=== PATIENT | female | born 1955 | race Two or more races ===

== ENCOUNTER → 2020-09-11 | Outpatient (CLI) | payer OTHER ==
[2020-09-11 08:42] LABS: Basophils # (auto) 0.1 10 ^3/uL (0-0.2); Basophils % (auto) 0.9 % (0.0-2.0); Eosinophils # (auto) 0.3 10 ^3/uL (0-0.8); Eosinophils % (auto) 5.1 % (0.0-7.0); Hematocrit 39.9 % (36.0-46.0); Hemoglobin 13.2 g/dL (12.2-16.2); Lymphocytes # (auto) 1.8 10 ^3/uL (0.4-5.4); Lymphocytes % (auto) 31.4 % (10.0-50.0); Mean Corpuscular Hemoglobin 31.1 pg (28.0-32.0); Mean Corpuscular Volume 94.3 fL (80.0-100.0); Monocytes # (auto) 0.4 10 ^3/uL (0-1.3); Monocytes % (auto) 6.7 % (0.0-12.0); Neutrophils # (auto) 3.3 10 ^3/uL (1.6-8.6); Neutrophils % (auto) 55.9 % (37.0-80.0); Nucleated Red Blood Cells % 0.1 %; Platelet Count (auto) 223 10^3/uL (140-450); Red Blood Cells 4.23 10^6/uL (4.0-5.20); Red Cell Distribution Width 13.1 % (11.8-14.3); White Blood Cell 5.9 10^3/uL (4.4-10.8)
[2020-09-11 08:47] LABS: Urine Bacteria NONE SEEN /hpf (None Seen); Urine Blood Negative /uL (Negative); Urine Mucus FEW (None Seen); Urine Specific Gravity 1.026 (1.001-1.035); Urine WBC 8 /hpf (0 - 5)
[2020-09-11 09:21] LABS: Albumin 3.5 g/dL (3.4-5.0); BUN/Creatinine Ratio 16.4; Bilirubin, Total 0.4 mg/dL (0.2-1.0); Calcium 9.2 mg/dL (8.5-10.1); Potassium 3.8 mmol/L (3.5-5.1); Total Protein 8.2 g/dL (6.4-8.2)
== END | disposition home or self-care (01) ==
LOC: LAB 08:21
PROVIDERS: ATTEND Student in an Organized Health Care Education/Training Program
DX: I10 Essential (primary) hypertension (principal); R73.9 Hyperglycemia, unspecified
CPT/HCPCS: 36415; 80053; 80061; 81001; 83036; 84443; 85025

== ENCOUNTER 2021-10-20 06:02 | Emergency (ER) | payer MEDICARE ==
[~2021-10-20] VITALS: Ht 157.5 cm; Wt 66.7 kg
[2021-10-20 07:56] VITALS: BP 154/85
[2021-10-20] MEDS ORDERED: PRED20TA2 PO (09:19)
[2021-10-20] MEDS ORDERED: LEVO500T31 PO (09:19)
== END 2021-10-20 09:33 | disposition home or self-care (01) ==
LOC: ER 06:02
DX: J01.90 Acute sinusitis, unspecified (principal); I10 Essential (primary) hypertension; Z20.822 Contact with and (suspected) exposure to COVID-19
CPT/HCPCS: 36415; 87426

== ENCOUNTER → 2022-04-08 | Outpatient (CLI) | payer MEDICARE, MEDICAID ==
[~2022-04-08] MED LIST: LEVO500T31 PO; PRED20TA2 PO
[2022-04-08 07:46] LABS: Basophils # (auto) 0.1 10 ^3/uL (0-0.2); Basophils % (auto) 1.2 % (0.0-2.0); Eosinophils # (auto) 0.2 10 ^3/uL (0-0.8); Hematocrit 38.5 % (36.0-46.0); Lymphocytes # (auto) 3.4 10 ^3/uL (0.4-5.4); Lymphocytes % (auto) 39.5 % (10.0-50.0); Mean Corpuscular Hemoglobin 31.7 pg (28.0-32.0); Mean Corpuscular Hgb Conc. 33.9 g/dL (32.0-36.0); Mean Corpuscular Volume 93.5 fL (80.0-100.0); Monocytes # (auto) 0.6 10 ^3/uL (0-1.3); Monocytes % (auto) 7.2 % (0.0-12.0); Neutrophils # (auto) 4.3 10 ^3/uL (1.6-8.6); Neutrophils % (auto) 50.1 % (37.0-80.0); Nucleated Red Blood Cells % 0.2 %; Red Blood Cells 4.12 10^6/uL (4.0-5.20); Red Cell Distribution Width 12.9 % (11.8-14.3); White Blood Cell 8.7 10^3/uL (4.4-10.8)
[2022-04-08 07:59] LABS: Urine Bacteria FEW /hpf (None Seen); Urine Blood Negative /uL (Negative); Urine WBC 1 /hpf (0 - 5)
[2022-04-08 08:29] LABS: Potassium 3.8 mmol/L (3.5-5.1)
[2022-04-08 08:37] LABS: Calcium 8.3 mg/dL (8.5-10.1)
== END | disposition home or self-care (01) ==
LOC: LAB 07:31
PROVIDERS: ATTEND Student in an Organized Health Care Education/Training Program
DX: R73.9 Hyperglycemia, unspecified (principal); I10 Essential (primary) hypertension
CPT/HCPCS: 36415; 80048; 80061; 81001; 83036; 85025

== ENCOUNTER → 2022-11-19 | Outpatient (CLI) | payer MEDICARE, MEDICAID ==
[2022-11-19 08:48] LABS: Basophils # (auto) 0.1 10 ^3/uL (0-0.2); Basophils % (auto) 0.9 % (0.0-2.0); Eosinophils # (auto) 0.2 10 ^3/uL (0-0.8); Eosinophils % (auto) 4.3 % (0.0-7.0); Hematocrit 40.4 % (36.0-46.0); Hemoglobin 13.5 g/dL (12.2-16.2); Lymphocytes # (auto) 1.9 10 ^3/uL (0.4-5.4); Lymphocytes % (auto) 35.2 % (10.0-50.0); Mean Corpuscular Hemoglobin 31.3 pg (28.0-32.0); Mean Corpuscular Hgb Conc. 33.4 g/dL (32.0-36.0); Mean Corpuscular Volume 93.7 fL (80.0-100.0); Monocytes # (auto) 0.3 10 ^3/uL (0-1.3); Monocytes % (auto) 5.6 % (0.0-12.0); Nucleated Red Blood Cells % 0.1 %; Red Blood Cells 4.31 10^6/uL (4.0-5.20); Red Cell Distribution Width 12.9 % (11.8-14.3); White Blood Cell 5.5 10^3/uL (4.4-10.8)
[2022-11-19 08:58] LABS: Urine Bacteria NONE SEEN /hpf (None Seen); Urine Blood Negative /uL (Negative); Urine Specific Gravity 1.017 (1.001-1.035); Urine WBC <1 /hpf (0 - 5)
[2022-11-19 09:25] LABS: Albumin 3.8 g/dL (3.4-5.0); Calcium 8.9 mg/dL (8.5-10.1)
[2022-11-19 09:32] LABS: BUN/Creatinine Ratio 16.1; Bilirubin, Total 0.5 mg/dL (0.2-1.0); Total Protein 8.4 g/dL (6.4-8.2)
== END | disposition home or self-care (01) ==
LOC: LAB 08:25
PROVIDERS: ATTEND Student in an Organized Health Care Education/Training Program
DX: I10 Essential (primary) hypertension (principal); R73.9 Hyperglycemia, unspecified; E55.9 Vitamin D deficiency, unspecified
CPT/HCPCS: 36415; 80053; 80061; 81001; 82306; 83036; 84443; 85025

== ENCOUNTER 2022-12-25 00:37 | Emergency (ER) | payer MEDICARE, OTHER ==
[~2022-12-25] VITALS: Ht 157.5 cm; Wt 66.6 kg
[2022-12-25] MEDS ORDERED: ONDANSETRON ODT 4 MG TAB PO ONE (02:15)
[2022-12-25 02:27] LABS: Basophils # (auto) 0.1 10 ^3/uL (0-0.2); Basophils % (auto) 0.6 % (0.0-2.0); Eosinophils # (auto) 0.2 10 ^3/uL (0-0.8); Eosinophils % (auto) 1.6 % (0.0-7.0); Hematocrit 41.1 % (36.0-46.0); Hemoglobin 13.8 g/dL (12.2-16.2); Lymphocytes # (auto) 1.5 10 ^3/uL (0.4-5.4); Lymphocytes % (auto) 11.9 % (10.0-50.0); Mean Corpuscular Hemoglobin 31.4 pg (28.0-32.0); Mean Corpuscular Hgb Conc. 33.7 g/dL (32.0-36.0); Mean Corpuscular Volume 93.3 fL (80.0-100.0); Monocytes # (auto) 0.8 10 ^3/uL (0-1.3); Monocytes % (auto) 6.1 % (0.0-12.0); Neutrophils % (auto) 79.8 % (37.0-80.0); Nucleated Red Blood Cells % 0.1 %; Red Cell Distribution Width 13.1 % (11.8-14.3); White Blood Cell 12.5 10^3/uL (4.4-10.8)
[2022-12-25 02:44] LABS: Albumin 3.9 g/dL (3.4-5.0); BUN/Creatinine Ratio 21.9; Calcium 9.1 mg/dL (8.5-10.1); Potassium 3.7 mmol/L (3.5-5.1)
[2022-12-25 02:46] LABS: Bilirubin, Total 0.5 mg/dL (0.2-1.0); Total Protein 8.7 g/dL (6.4-8.2)
[2022-12-25] MEDS ORDERED: METR500T PO (05:40)
[2022-12-25] MEDS ORDERED: CIPR-173 PO (05:40)
[2022-12-25] MEDS ORDERED: ONDA-144 PO (05:40)
[2022-12-25] MEDS ORDERED: PERCOT PO (05:40)
[2022-12-25 06:55] VITALS: BP 150/79
== END 2022-12-25 06:54 | disposition home or self-care (01) ==
LOC: ER 00:37
DX: K52.9 Noninfective gastroenteritis and colitis, unspecified (principal); I10 Essential (primary) hypertension; Z79.2 Long term (current) use of antibiotics; Z79.899 Other long term (current) drug therapy
CPT/HCPCS: 36415; 74176; 80053; 85025; 99284; Q0162

== ENCOUNTER 2023-01-21 17:11 | Emergency (ER) | payer MEDICARE, OTHER ==
[~2023-01-21] VITALS: Ht 162.6 cm; Wt 67.9 kg
[~2023-01-21 17:11] MED LIST changes: +CIPR-173 PO; +METR500T PO; +ONDA-144 PO; +PERCOT PO
[2023-01-21] MEDS ORDERED: NAP500T PO (19:27)
[2023-01-21] MEDS ORDERED: KETOROLAC TROMETH 60MG/2ML VIAL IM ONE (19:30)
[2023-01-21] MEDS ORDERED: methylPREDNISolone SOD SUCC 125 MG/2 ML VL IM ONE (19:30)
[2023-01-21 21:39] VITALS: BP 138/79
== END 2023-01-21 21:39 | disposition home or self-care (01) ==
LOC: ER 17:11
DX: S16.1XXA Strain of muscle, fascia and tendon at neck level, initial encounter (principal); I10 Essential (primary) hypertension; Z79.2 Long term (current) use of antibiotics; Z79.899 Other long term (current) drug therapy; X58.XXXA Exposure to other specified factors, initial encounter; Y93.89 Activity, other specified; Y92.89 Other specified places as the place of occurrence of the external cause; Y99.8 Other external cause status
CPT/HCPCS: 72040; 96372; 99283; J1885

== ENCOUNTER → 2023-04-29 | Outpatient (CLI) | payer MEDICARE, OTHER ==
[~2023-04-29] MED LIST changes: +NAP500T PO
[2023-04-29 07:59] LABS: Basophils # (auto) 0.1 10 ^3/uL (0-0.2); Basophils % (auto) 1.1 % (0.0-2.0); Eosinophils # (auto) 0.2 10 ^3/uL (0-0.8); Eosinophils % (auto) 4.1 % (0.0-7.0); Hematocrit 38.7 % (36.0-46.0); Hemoglobin 12.8 g/dL (12.2-16.2); Lymphocytes # (auto) 1.8 10 ^3/uL (0.4-5.4); Lymphocytes % (auto) 32.7 % (10.0-50.0); Mean Corpuscular Hemoglobin 30.9 pg (28.0-32.0); Mean Corpuscular Hgb Conc. 33.1 g/dL (32.0-36.0); Mean Corpuscular Volume 93.5 fL (80.0-100.0); Monocytes # (auto) 0.4 10 ^3/uL (0-1.3); Monocytes % (auto) 6.7 % (0.0-12.0); Neutrophils % (auto) 55.4 % (37.0-80.0); Nucleated Red Blood Cells % 0.1 %; Red Blood Cells 4.14 10^6/uL (4.0-5.20); Red Cell Distribution Width 13.4 % (11.8-14.3); White Blood Cell 5.4 10^3/uL (4.4-10.8)
[2023-04-29 08:26] LABS: Urine Bacteria FEW /hpf (None Seen); Urine Blood Negative /uL (Negative); Urine Mucus FEW (None Seen); Urine Specific Gravity 1.025 (1.001-1.035); Urine WBC 4 /hpf (0 - 5)
[2023-04-29 08:55] LABS: Albumin 3.5 g/dL (3.4-5.0); BUN/Creatinine Ratio 15.7 (10.0-20.0); Bilirubin, Total 0.4 mg/dL (0.2-1.0); Calcium 9.1 mg/dL (8.5-10.1); Total Protein 8.4 g/dL (6.4-8.2)
== END | disposition home or self-care (01) ==
LOC: LAB 07:24
PROVIDERS: ATTEND Student in an Organized Health Care Education/Training Program
DX: N39.0 Urinary tract infection, site not specified (principal)
CPT/HCPCS: 36415; 80053; 81001; 85025; 87086

== ENCOUNTER → 2023-06-09 | Outpatient (CLI) | payer MEDICARE, OTHER ==
[2023-06-09 08:18] LABS: Basophils # (auto) 0.1 10 ^3/uL (0-0.2); Basophils % (auto) 0.9 % (0.0-2.0); Eosinophils # (auto) 0.3 10 ^3/uL (0-0.8); Eosinophils % (auto) 4.2 % (0.0-7.0); Hematocrit 37.9 % (36.0-46.0); Hemoglobin 12.9 g/dL (12.2-16.2); Lymphocytes # (auto) 2.1 10 ^3/uL (0.4-5.4); Lymphocytes % (auto) 33.5 % (10.0-50.0); Mean Corpuscular Hgb Conc. 34.1 g/dL (32.0-36.0); Mean Corpuscular Volume 93.9 fL (80.0-100.0); Monocytes # (auto) 0.4 10 ^3/uL (0-1.3); Monocytes % (auto) 6.6 % (0.0-12.0); Neutrophils # (auto) 3.5 10 ^3/uL (1.6-8.6); Neutrophils % (auto) 54.8 % (37.0-80.0); Nucleated Red Blood Cells % 0.2 %; Red Blood Cells 4.04 10^6/uL (4.0-5.20); Red Cell Distribution Width 12.7 % (11.8-14.3); White Blood Cell 6.4 10^3/uL (4.4-10.8)
[2023-06-09 08:22] LABS: Urine Bacteria FEW /hpf (None Seen); Urine Blood Negative /uL (Negative); Urine Clarity Clear (Clear); Urine Color Yellow (Yellow); Urine Mucus FEW (None Seen); Urine Protein, UAD Negative (Negative); Urine Urobilinogen Normal (Negative); Urine WBC 2 /hpf (0 - 5)
[2023-06-09 08:42] LABS: Albumin 3.5 g/dL (3.4-5.0); Calcium 8.7 mg/dL (8.5-10.1); Potassium 3.8 mmol/L (3.5-5.1)
[2023-06-09 08:47] LABS: BUN/Creatinine Ratio 16.7 (10.0-20.0); Bilirubin, Total 0.5 mg/dL (0.2-1.0); Total Protein 8.1 g/dL (6.4-8.2)
== END | disposition home or self-care (01) ==
LOC: LAB 07:53
DX: I10 Essential (primary) hypertension (principal); R73.03 Prediabetes
CPT/HCPCS: 36415; 80053; 80061; 81001; 83036; 85025

== ENCOUNTER 2025-01-29 17:31 | Inpatient (IN) | payer OTHER, MEDICAID ==
[~2025-01-29] VITALS: Ht 157.5 cm; Wt 57.6 kg
--- NOTE | 2025-01-29 17:44 | ED.PDOC ---
HPI Comments 69 year old female presents to the ED via EMS with a chief complaint of chest pain onset today (01/29/25). Per EMS, patient was experiencing chest pain, EKG showed she was in SVT, was given Adenosine 6 mg IV, converted to NSR. Upon ED arrival, patient states chest pain has resolved. She denies any past cardiac history, states she began experiencing cardiac issues after having COVID 2 weeks ago. Has an appointment with [facility] on 02/08/25. PMHx HTN. Denies shortness of breath, dizziness, headache, blurry vision, nausea, vomiting, diarrhea, abdominal pain, dysuria, hematuria, fever, chills. No other symptoms or modifying factors present at this time. Patient continued to be mildly tachycardic at arrival. Chief Complaint: Chest Pain Time Seen by MD: 17:35 Primary Care Provider: FAYE Reviewed Notes: Nurses Notes, Sheet [employer] Du[employer] Worker Supervisor Notes, Medications, Allergies Allergies: Coded Allergies: NO KNOWN ALLERGIES (Unverified , 12/25/22) Home Meds Active Scripts Naproxen (NAPROSYN TABLET) 500 Mg Tb, 1 TAB PO BID PRN, #30 TAB 0 Refills Prov:CARLOS KAN 01/21/23 Ondansetron (Zofran) 4 Mg Tab, 4 MG PO BID for 7 Days, #14 MG Prov:LUKE CASTORENA MD 12/25/22 Oxycodone W/ Acetaminophen (Percocet 5/325MG) 1 Tab Tb, 1 TAB PO BID for 7 Days, #14 TAB Prov:LUKE CASTORENA MD 12/25/22 Ciprofloxacin Hcl (Cipro) 500 Mg Tab, 500 MG PO BID for 7 Days, #14 TAB Prov:LUKE CASTORENA MD 12/25/22 Metronidazole (Flagyl) 500 Mg Tab, 500 MG PO BID for 7 Days, #14 TAB Prov:LUKE CASTORENA MD 12/25/22 Metronidazole (Flagyl) 500 Mg Tab, 500 MG PO BID for 7 Days, #14 TAB Prov:LUKE CASTORENA MD 12/25/22 Prednisone (Prednisone) 20 Mg Tab, 60 MG PO DAILY for 5 Days, #15 MG Prov:ORLIN GARY 10/20/21 Levofloxacin (Levaquin) 500 Mg Tab, 500 MG PO DAILY for 10 Days, #10 TAB Prov:ORLIN GARY 10/20/21 Information Source: Patient, Emergency Med Personnel Mode of Arrival: EMS Severity: Moderate Timing: Hours Duration: Since onset Prehospital treatment: 12 Lead EKG, Other (Asenosine 6mg IV) Location: Chest (L) Radiation: No Radiation Quality: Sharp Onset: At Rest Cardiac Risk Factors: HTN PE Risk Factors: None History of: None Modifying Factors: Nothing Past Medical History PAST MEDICAL HISTORY: Cancer, HTN Surgical History: Denies all surgeries 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 Family History Family History: Unknown Social History Smoker: Non-Smoker Alcohol: Denies ETOH Use Drugs: Denies Drug Use Lives In: Home Constitutional: denies: chills, diaphoresis, fatigue, fever, malaise, sweats, weakness, others EENTM: denies: blurred vision, double vision, ear bleeding, ear discharge, ear drainage, ear pain, ear ringing, eye pain, eye redness, hearing loss, mouth pain, mouth swelling, nasal discharge, nose bleeding, nose congestion, nose pain, photophobia, tearing, throat pain, throat swelling, voice changes, others Respiratory: denies: cough, hemoptysis, orthopnea, SOB at rest, shortness of breath, SOB with excertion, stridor, wheezing, others Cardiovascular: reports: chest pain, palpitations; denies: dizzy spells, diaphoresis, Dyspnea on exertion, edema, irregular heart beat, left arm pain, lightheadedness, PND, syncope, others Gastrointestinal: denies: abdomen distended, abdominal pain, blood streaked bowels, constipated, diarrhea, dysphagia, difficulty swallowing, hematemesis, melena, nausea, poor appetite, poor fluid intake, rectal bleeding, rectal pain, vomiting, others Genitourinary: denies: abnormal vagina bleeding, burning, dyspareunia, dysuria, flank pain, frequency, hematuria, incontinence, pain, , vagina discharge, urgency, others Neurological: denies: dizziness, fainting, headache, left sided numbness, left sided weakness, numbness, paresthesia, pre-existing deficit, right sided numbness, right sided weakness, seizure, speech problems, tingling, tremors, weakness, others Musculoskeletal: denies: back pain, gout, joint pain, joint swelling, muscle pain, muscle stiffness, neck pain, others Integumetry: denies: bruises, change in color, change in hair/nails, dryness, laceration, lesions, lumps, rash, wounds, others Allergic/Immunocompromised: denies: Difficulty Healing, Frequent Infections, Hives, Itching, others Hematologic/Lymphatic: denies: anemia, blood clots, easy bleeding, easy bruising, swollen glands, others Endocrine: denies: excessive hunger, excessive sweating, excessive thirst, excessive urination, flushing, intolerance to cold, intolerance to heat, unexplained weight gain, unexplained weight loss, others Psychiatric: denies: anxiety, bipolar disorder, depression, hopeless, panic disorder, schizophrenia, sleepless, suicidal, others All Other Systems: Reviewed and Negative Physical Exam General Appearance: Mild Distress (Patient was in mild discomfort at time of evaluation due to chest pain anxiety concerns.), Normal HEENT: Normal ENT Inspection, Pharynx Normal, TMs Normal Neck: Full Range of Motion, Non-Tender, Normal, Normal Inspection Respiratory: Chest Non-Tender, Lungs Clear, No Accessory Muscle Use, No Respiratory Distress, Normal Breath Sounds Cardiovascular: No Edema, No JVD, No Murmur, No Gallop, Normal Peripheral Pulses, Tachycardia Breast Exam: Deferred Gastrointestinal: No Organomegaly, Non Tender, No Pulsatile Mass, Normal Bowel Sounds, Soft Genitalia: Deferred Pelvic: Deferred Rectal: Deferred Extremities: No calf tenderness, Normal capillary refill, Normal inspection, Normal range of motion, Non-tender, No pedal edema Musculoskeletal : Apperance: Normal Neurologic: Alert, No Motor Deficits, Normal Affect, Normal Mood, No Sensory Deficits Cerebellar Function: Normal Reflexes: Normal Skin: Dry, Normal Color, Warm Lymphatic: No Adenopathy Was a procedure done? Was a procedure done?: No CP Differential Dx Differential Diagnosis: A-fib, A-Flutter, Anxiety / Panic Attack, Atrial Dysrhythmia, AV Block 1st Degree, CT, V-Tach Differential Diagnosis: Angina X-Ray, Labs, Meds, VS Vital Signs Date Time Temp Pulse Resp B/P (MAP) Pulse Ox O2 Delivery O2 Flow Rate FiO2 01/29/25 18:10 98.5 107 18 117/67 (84) 95 98.5 01/29/25 18:10 107 18 95 Room Air* 0 21 01/29/25 17:40 112 01/29/25 17:33 110 18 134/59 (84) 100 Lab Test 01/29/25 21:01 01/29/25 18:59 01/29/25 18:14 01/29/25 18:05 Range/Units Troponin I High Sensitivity 10 6 3 L </=34 ng/L Urine Color Colorless Yellow Urine Clarity Clear Clear Urine pH 6.5 5.0-9.0 Urine Specific [place] 1.005 1.001-1.035 Urine Protein Negative Negative Urine Ketones Negative Negative Urine Blood Negative Negative /uL Urine Nitrite Negative Negative Urine Bilirubin Negative Negative Urine Urobilinogen Normal Negative mg/dL Urine Leukocyte Esterase Negative Negative /uL Urine RBC 1 0 - 4 /hpf Urine Microscopic WBC 1 0-5 /HPF Urine Squamous Epithelial Cells Few <5 /hpf Urine Bacteria Mod H None Seen /hpf Urine Mucus Few None Seen Urine Glucose Normal Normal mg/dL White Blood Count 7.5 4.4-10.8 10^3/uL Red Blood Count 4.27 4.0-5.20 10^6/uL Hemoglobin 13.5 12.2-16.2 g/dL Hematocrit 41.4 36.0-46.0 % Mean Corpuscular Volume 97.1 80.0-100.0 fL Mean Corpuscular Hemoglobin 31.6 28.0-32.0 pg Mean Corpuscular Hemoglobin Concent 32.6 32.0-36.0 g/dL Red Cell Distribution Width 12.9 11.8-14.3 % Platelet Count 235 140-450 10^3/uL Mean Platelet Volume 7.5 6.9-10.8 fL Neutrophils (%) (Auto) 82.1 H 37.0-80.0 % Lymphocytes (%) (Auto) 11.9 10.0-50.0 % Monocytes (%) (Auto) 4.7 0.0-12.0 % Eosinophils (%) (Auto) 0.9 0.0-7.0 % Basophils (%) (Auto) 0.4 0.0-2.0 % Neutrophils # (Auto) 6.1 1.6-8.6 10 ^3/uL Lymphocytes # (Auto) 0.9 0.4-5.4 10 ^3/uL Monocytes # (Auto) 0.3 0-1.3 10 ^3/uL Eosinophils # (Auto) 0.1 0-0.8 10 ^3/uL Basophils # (Auto) 0 0-0.2 10 ^3/uL Nucleated Red Blood Cells 0.1 % D-Dimer, Quantitative 0.88 H 0.0-0.49 mg/L FEU Sodium Level 140 136-145 mmol/L Potassium Level 3.9 3.5-5.1 mmol/L Chloride Level 109 H 98-107 mmol/L Carbon Dioxide Level 20 20-31 mmol/L Anion Gap 11 5-15 Blood Urea Nitrogen 12 9-23 mg/dL Creatinine 0.74 0.550-1.02 mg/dL Glomerular Filtration Rate Calc 87 >90 mL/min BUN/Creatinine Ratio 16.2 10.0-20.0 Serum Glucose 147 H 74-106 mg/dL Calcium Level 9.6 8.7-10.4 mg/dL Magnesium Level 2.2 1.6-2.6 mg/dL Total Bilirubin 0.3 0.2-1.0 mg/dL Aspartate Amino Transferase (AST) 49 H 13-40 U/L Alanine Aminotransferase (ALT) 49 H 7-40 U/L Alkaline Phosphatase 100 46-116 U/L B-Type Natriuretic Peptide 43.83 0-100 pg/mL Total Protein 8.3 H 5.7-8.2 g/dL Albumin 4.5 3.2-4.8 g/dL Thyroid Stimulating Hormone (TSH) 0.89 0.55-4.78 uIU/mL X-Ray, Labs, Meds, VS Comment All studies performed the ED were evaluated by me personally. Serum laboratories were only remarkable for a mildly elevated D-dimer. Patient displayed no signs of shortness a breath and therefore, CT angio was not ordered. EKG revealed a sinus tachycardia with a rate of 112. Probable left atrial enlargement. Left anterior fascicular block with low voltage in precordial leads as well as RSR in V1 and V2. CA interval 143 and QT interval of 346. Due to the onset of the V-tach, patient will be transferred to [facility] for continued evaluation and management. Patient will be given a single dose of Lovenox for PE protection. Discussed the patient presentation as well as laboratory and EKG findings with the Dr. Rivers at [facility]. Due to the recent onset of the V-tach events, he will allow us to manage the patient at our [facility]. Authorization number [id number]. Time of 1ST Reevaluation: 22:18 Reevaluation 1ST: Improved Consultation: PCP, Cardiology Patient Education/Counseling: Diagnosis, Treatment, Prognosis Family Education/Counseling: Diagnosis, Treatment, No Family Present Departure 1 Departure Time of Disposition: 21:57 Impression: Primary Impression: Acute coronary syndrome Additional Impression: V tach Disposition: 02 SHORT TERM HOSPITAL Condition: Stable Discharged With: Self Critical Care Note Critical Care Time?: No Stability Stability form required: No Heart Score Heart Score: Heart Score Response (Comments) Value History Slightly Suspicious 0 EKG Repolarization Disturb 1 Age >65 2 Risk Factors 1 or 2 risk factors 1 Troponin Normal limit 0 Total 4 I personally scribed for TYRONE WILSON PAC ([email or web address]) on 01/29/25 at 17:44. Electronically submitted by Iveth Frank ([email or web address]). I personally scribed for TYRONE WILSON PAC ([email or web address]) on 01/29/25 at 20:23. Electronically submitted by Dick Marcelo ([email or web address]). TYRONE WILSON PAC Jan 29, 2025 17:44
[2025-01-29 18:10] VITALS: PULSE 107; RESP 18; O2SAT 95
[2025-01-29 18:38] LABS: Basophils # (auto) 0 10 ^3/uL (0-0.2); Basophils % (auto) 0.4 % (0.0-2.0); Eosinophils # (auto) 0.1 10 ^3/uL (0-0.8); Eosinophils % (auto) 0.9 % (0.0-7.0); Hematocrit 41.4 % (36.0-46.0); Hemoglobin 13.5 g/dL (12.2-16.2); Lymphocytes # (auto) 0.9 10 ^3/uL (0.4-5.4); Lymphocytes % (auto) 11.9 % (10.0-50.0); Mean Corpuscular Hemoglobin 31.6 pg (28.0-32.0); Mean Corpuscular Hgb Conc. 32.6 g/dL (32.0-36.0); Mean Corpuscular Volume 97.1 fL (80.0-100.0); Monocytes # (auto) 0.3 10 ^3/uL (0-1.3); Monocytes % (auto) 4.7 % (0.0-12.0); Neutrophils # (auto) 6.1 10 ^3/uL (1.6-8.6); Neutrophils % (auto) 82.1 % (37.0-80.0); Nucleated Red Blood Cells % 0.1 %; Platelet Count (auto) 235 10^3/uL (140-450); Red Blood Cells 4.27 10^6/uL (4.0-5.20); Red Cell Distribution Width 12.9 % (11.8-14.3); White Blood Cell 7.5 10^3/uL (4.4-10.8)
[2025-01-29 19:07] LABS: Urine Bacteria MOD /hpf (None Seen); Urine Blood Negative /uL (Negative); Urine Clarity Clear (Clear); Urine Color Colorless (Yellow); Urine Mucus FEW (None Seen); Urine Protein, UAD Negative (Negative); Urine Specific Gravity 1.005 (1.001-1.035); Urine Squamous Epithelial Cell FEW /hpf (<5); Urine Urobilinogen Normal (Negative); Urine WBC 1 /HPF (0-5); Urine pH 6.5 (5.0-9.0)
[2025-01-29 19:09] LABS: Albumin 4.5 g/dL (3.2-4.8); Alkaline Phosphatase 100 U/L (46-116); Anion Gap 11 (5-15); BUN/Creatinine Ratio 16.2 (10.0-20.0); Blood Urea Nitrogen 12 mg/dL (9-23); Calcium 9.6 mg/dL (8.7-10.4); Carbon Dioxide 20 mmol/L (20-31); Magnesium 2.2 mg/dL (1.6-2.6); Potassium 3.9 mmol/L (3.5-5.1); Sodium 140 mmol/L (136-145)
[2025-01-29 19:13] LABS: Alanine Aminotransferase 49 U/L (7-40); Aspartate Aminotransferase 49 U/L (13-40); Bilirubin, Total 0.3 mg/dL (0.2-1.0); Chloride 109 mmol/L (98-107); Glucose 147 mg/dL (74-106); Total Protein 8.3 g/dL (5.7-8.2)
[2025-01-29 23:00] VITALS: PULSE 79; RESP 22; O2SAT 97
[2025-01-30] VITALS (8 sets, daily range): BP systolic 111–132; BP diastolic 59–72; PULSE 63–84; RESP 16–18; TEMP 97.3–98.3; O2SAT 95–98
[2025-01-30] MEDS ORDERED: MORPHINE SULFATE INJ 2 MG/ml SYRG IV PRN
[2025-01-30] MEDS ORDERED: ONDANSETRON HCL 4 MG/2 ML VIAL IV PRN
[2025-01-30] MEDS ORDERED: ACETAMINOPHEN 325 MG TAB PO PRN
[2025-01-30] MEDS ORDERED: NITROGLYCERIN 0.4 MG SL TAB SL PRN
[2025-01-30] MEDS: IOHEXOL 350 MG/ML 100ML IJ ONE (00:06)
--- NOTE | 2025-01-30 00:35 | DVHHP2 ---
History of Present Illness Reason for Visit: Palpitations History of Present Illness 69-year-old female presents for evaluation of palpitations. Patient reports a one day history of palpitations. In route patient was noted to be in SVT and was given 6 mg of adenosine converted to normal sinus rhythm. Patient reports having a similar episode two weeks ago. Denies chest pain, shortness for breath, nausea or vomiting. No other acute complaints reported. Past Medical History Hypertension, cancer, SVT Past Surgical History Denies Family History Noncontributory Smoke: No ALCOHOL: none Drugs: None Lives: with Family Review of Systems Review of Systems Review of systems are currently negative otherwise addressed in HPI. Allergies: Coded Allergies: NO KNOWN ALLERGIES (Unverified , 12/25/22) Medications Current Medications Medications Dose Ordered Sig/[place] Route Start Time Stop Time Status Last Admin Dose Admin Metoprolol Succinate 50 mg DAILY PO 01/30/25 10:00 Ondansetron HCl 4 mg Q4HP PRN IV 01/30/25 00:00 Acetaminophen 650 mg Q6HP PRN PO 01/30/25 00:00 Nitroglycerin 0.4 mg Q5MINP PRN SL 01/30/25 00:00 Morphine Sulfate 2 mg Q30M PRN IV 01/30/25 00:00 Exam Vital Signs Vital Signs Date Time Temp Pulse Resp B/P (MAP) Pulse Ox O2 Delivery O2 Flow Rate FiO2 01/30/25 00:00 92 01/30/25 00:00 98.8 17 129/64 (85) 94 98.8 01/29/25 23:00 Room Air* 0 21 Exam Gen: 69-year-old female in mild distress Skin: Warm, dry, normal color and texture, no rash. HEENT: Normocephalic atraumatic, mucous membranes moist and pink. Neck: Cervical and supraclavicular nodes normal without enlargement, trachea is midline, thyroid gland is normal without masses. Pulmonary: Clear to auscultation and percussion bilaterally. Cardiac: Regular rate and rhythm. No murmur Abdomen: Soft, nontender, nondistended, bowel sounds present all 4 quadrants, no guarding, no rigidity, no organomegaly. Extremities: No cyanosis, clubbing, no edema Neuro: Cranial nerves II through XII grossly intact, normal affect and speech, no focal motor deficits. Labs/Xrays Labs Test 01/29/25 21:01 01/29/25 18:14 01/29/25 18:05 Range/Units Troponin I High Sensitivity 10 </=34 ng/L Thyroid Stimulating Hormone (TSH) 0.93 0.55-4.78 uIU/mL Urine Color Colorless Yellow Urine Clarity Clear Clear Urine pH 6.5 5.0-9.0 Urine Specific [place] 1.005 1.001-1.035 Urine Protein Negative Negative Urine Ketones Negative Negative Urine Blood Negative Negative /uL Urine Nitrite Negative Negative Urine Bilirubin Negative Negative Urine Urobilinogen Normal Negative mg/dL Urine Leukocyte Esterase Negative Negative /uL Urine RBC 1 0 - 4 /hpf Urine Microscopic WBC 1 0-5 /HPF Urine Squamous Epithelial Cells Few <5 /hpf Urine Bacteria Mod H None Seen /hpf Urine Mucus Few None Seen Urine Glucose Normal Normal mg/dL White Blood Count 7.5 4.4-10.8 10^3/uL Red Blood Count 4.27 4.0-5.20 10^6/uL Hemoglobin 13.5 12.2-16.2 g/dL Hematocrit 41.4 36.0-46.0 % Mean Corpuscular Volume 97.1 80.0-100.0 fL Mean Corpuscular Hemoglobin 31.6 28.0-32.0 pg Mean Corpuscular Hemoglobin Concent 32.6 32.0-36.0 g/dL Red Cell Distribution Width 12.9 11.8-14.3 % Platelet Count 235 140-450 10^3/uL Mean Platelet Volume 7.5 6.9-10.8 fL Neutrophils (%) (Auto) 82.1 H 37.0-80.0 % Lymphocytes (%) (Auto) 11.9 10.0-50.0 % Monocytes (%) (Auto) 4.7 0.0-12.0 % Eosinophils (%) (Auto) 0.9 0.0-7.0 % Basophils (%) (Auto) 0.4 0.0-2.0 % Neutrophils # (Auto) 6.1 1.6-8.6 10 ^3/uL Lymphocytes # (Auto) 0.9 0.4-5.4 10 ^3/uL Monocytes # (Auto) 0.3 0-1.3 10 ^3/uL Eosinophils # (Auto) 0.1 0-0.8 10 ^3/uL Basophils # (Auto) 0 0-0.2 10 ^3/uL Nucleated Red Blood Cells 0.1 % D-Dimer, Quantitative 0.88 H 0.0-0.49 mg/L FEU Sodium Level 140 136-145 mmol/L Potassium Level 3.9 3.5-5.1 mmol/L Chloride Level 109 H 98-107 mmol/L Carbon Dioxide Level 20 20-31 mmol/L Anion Gap 11 5-15 Blood Urea Nitrogen 12 9-23 mg/dL Creatinine 0.74 0.550-1.02 mg/dL Glomerular Filtration Rate Calc 87 >90 mL/min BUN/Creatinine Ratio 16.2 10.0-20.0 Serum Glucose 147 H 74-106 mg/dL Calcium Level 9.6 8.7-10.4 mg/dL Magnesium Level 2.2 1.6-2.6 mg/dL Total Bilirubin 0.3 0.2-1.0 mg/dL Aspartate Amino Transferase (AST) 49 H 13-40 U/L Alanine Aminotransferase (ALT) 49 H 7-40 U/L Alkaline Phosphatase 100 46-116 U/L B-Type Natriuretic Peptide 43.83 0-100 pg/mL Total Protein 8.3 H 5.7-8.2 g/dL Albumin 4.5 3.2-4.8 g/dL Assessment/Plan Assessment/Plan Assessment SVT Hypertension Plan Admit the patient to telemetry to the hospitalist Cardiology consultation CT angiogram pending Echocardiogram pending Resume home medications Continue treatment per orders. Plan discussed with: Patient My Orders Orders - RIMA LOBO Procedure Category Date Status Time * Cardiology Consult CONS 01/29/25 Transmitted 23:53 Metoprolol Xl PHA 01/30/25 In Process Succinate (Toprol Xl) 10:00 Admit ADMIT 01/29/25 Transmitted 23:53 Ondansetron Hcl PHA 01/30/25 In Process (Zofran) 00:00 Cardiac DIET 01/30/25 Transmitted Diet-2gna,Lofat,Lochol Breakfast Echo 2d Mode Cardiac US 01/29/25 Logged DOP 23:53 Condition: Fair MARK 01/29/25 In Process 23:53 Acetaminophen Tablet PHA 01/30/25 In Process (Tylenol Tablet) 00:00 Bedrest With Bathroom MARK 01/29/25 In Process Privileg 23:53 Nitroglycerin PHA 01/30/25 In Process Sublingual (Ntrostat 00:00 Morphine Sulfate PHA 01/30/25 In Process Injection 00:00 Stat Ekg For Chest MARK 01/29/25 In Process Pain 23:53 Notify Md Of Changes [facility] 01/29/25 In Process From Base 23:53 Repairer For [facility] 01/29/25 In Process 24 Hours 23:53 Emergency Dysrhythmia [facility] 01/29/25 In Process Protocol 23:53 Rhythm Strips Once [facility] 01/29/25 In Process Every Shift 23:53 Oxygen By Nasal RT 01/29/25 Transmitted Cannula 23:53 Date of Service: Jan 29, 2025 Billing Provider: RIMA LOBO Common Visit Codes: [id number] INP/OBS CARE (HIGH) RIMA LOBO Jan 30, 2025 00:35
--- NOTE | 2025-01-30 00:46 | DVH ---
CTA Chest with intravenous contrast INDICATION: Elevated D-dimer COMPARISON: None TECHNIQUE: Multidetector spiral CTA of the chest was performed of the chest with intravenous contrast . PULMONARY ANGIOGRAPHY PROTOCOL was utilized using a bolus-tracking technique centered on the main p ulmonary artery. Axial, coronal and sagittal multiplanar and MIP reformats were performed. Radiation Dose : 1. Chest: CTDI volume is mGy. Dose-length product is mGy*cm The dose indicators for CT are the volume Computed Tomography (CT) Dose Index (CTDIvol) and the Dose Length Product (DLP), and are measured in units of mGy and mGy-cm, respectively. These indicators are not patient dose, but values generated from the CT scanner acquisition factors. The report includes radiation exposure data for exposures received during this examination. Findings: Pulmonary artery: No evidence for pulmonary embolism. Lower neck: Unremarkable. Lungs: Mild subsegmental atelectasis at the lung bases greater on the left side. No pulmonary infiltr ates. Pleura: No pleural effusion or pneumothorax. Heart/Vascular Structures: Normal heart size. No pericardial effusion. Normal thoracic aorta, Mediastinum / Lymph Nodes: No abnormality demonstrated. No evidence of lymphadenopathy. Musculoskeletal: No acute osseous abnormality. Soft tissues: Unremarkable. IMPRESSION: No evidence of pulmonary embolism.
[2025-01-30] MEDS ORDERED: LOSA100T25 PO (01:28)
[2025-01-30] MEDS: METOPROLOL SUCCINATE XL 50 MG TAB PO SCH (09:49)
--- NOTE | 2025-01-30 11:56 | DVHPN2 ---
Subjective The patient seen and examined at bedside. The patient denied any heart palpitation. Reviewed: Care Plan, H&P, Labs, Medications, Previous Orders, Radiology Changes from previous H/P or p: No Changes Objective Vitals Vital Signs Date Time Temp Pulse Resp B/P (MAP) Pulse Ox O2 Delivery O2 Flow Rate FiO2 01/30/25 09:49 84 131/71 01/30/25 08:00 98.3 17 98 98.3 01/30/25 00:59 Room Air* 0 21 Intake/Output Intake and Output 01/30/25 07:00 Intake Total 30 ml Output Total 1 ml Balance 29 ml Intake Oral 30 ml Output Urine Total 1 ml General Appearance: Alert, Oriented X3, Cooperative, No acute distress HEENT: Atraumatic, PERRLA, EOMI, Mucous membr. moist/pink Neck: Supple Lungs: Clear to auscultation, Normal air movement Cardiovascular: Regular rate, Normal S1, Normal S2, No murmurs, Gallops, Rubs Abdomen: Normal bowel sounds, Soft, No tenderness Neuro: Cranial nerves 3-12 NL Psych/Mental Status: Mental status NL Medications Current Medications Medications Dose Ordered Sig/[place] Route Start Time Stop Time Status Last Admin Dose Admin Metoprolol Succinate 50 mg DAILY PO 01/30/25 10:00 01/30/25 09:49 50 MG Ondansetron HCl 4 mg Q4HP PRN IV 01/30/25 00:00 Acetaminophen 650 mg Q6HP PRN PO 01/30/25 00:00 Nitroglycerin 0.4 mg Q5MINP PRN SL 01/30/25 00:00 Morphine Sulfate 2 mg Q30M PRN IV 01/30/25 00:00 Laboratory Results Laboratory Tests 01/29/25 18:05 Chemistry Test 01/29/25 18:05 Albumin 4.5 g/dL (3.2-4.8) Calcium Level 9.6 mg/dL (8.7-10.4) Magnesium Level 2.2 mg/dL (1.6-2.6) Total Protein 8.3 g/dL (5.7-8.2) H Coagulation Test 01/29/25 18:05 D-Dimer, Quantitative 0.88 mg/L FEU (0.0-0.49) H Cardiac Markers Test 01/29/25 18:05 B-Type Natriuretic Peptide 43.83 pg/mL (0-100) LFT Test 01/29/25 18:05 Alanine Aminotransferase (ALT) 49 U/L (7-40) H Alkaline Phosphatase 100 U/L (46-116) Aspartate Amino Transferase (AST) 49 U/L (13-40) H Total Bilirubin 0.3 mg/dL (0.2-1.0) HgA1c, TSH Test 01/29/25 18:05 01/29/25 21:01 Thyroid Stimulating Hormone (TSH) 0.89 uIU/mL (0.55-4.78) 0.93 uIU/mL (0.55-4.78) Urinalysis Test 01/29/25 18:14 Urine Color Colorless (Yellow) Urine Clarity Clear (Clear) Urine pH 6.5 (5.0-9.0) Urine Specific [place] 1.005 (1.001-1.035) Urine Protein Negative (Negative) Urine Ketones Negative (Negative) Urine Blood Negative /uL (Negative) Urine Nitrite Negative (Negative) Urine Bilirubin Negative (Negative) Urine Urobilinogen Normal mg/dL (Negative) Urine Leukocyte Esterase Negative /uL (Negative) Urine RBC 1 /hpf (0 - 4) Urine Microscopic WBC 1 /HPF (0-5) Urine Squamous Epithelial Cells Few /hpf (<5) Urine Bacteria Mod /hpf (None Seen) H Urine Mucus Few (None Seen) Urine Glucose Normal mg/dL (Normal) Labs and/or images reviewed: Labs reviewed by me Assessment/Plan Assessment/Plan SVT Hypertension Plan Continue current management. CT angio did not show PE. Waiting for grease man Waiting for echo to be done. Continue meds. This medical document was created using an electronic medical record system with [employer] direct computerized dictation system. Although this document has been carefully reviewed, there may still be some phonetic and typographical errors. These areas are purely typographical due to imperfections of the software programs, and do not reflect any compromise in the patient's medical care. Plan discussed with: Patient Date of Service: Jan 30, 2025 Billing Provider: NGUYỄN MORENO MD Common Visit Codes: [id number] INP/OBS CARE(HIGH) NGUYỄN MORENO MD Jan 30, 2025 11:56
--- NOTE | 2025-01-30 15:17 | DVHINCON2 ---
Date Seen: Jan 30, 2025 Referring Physician JAZLYN Toribio Reason for Consultation SVT History of Present Illness This is a pleasant Indonesian-speaking mostly 69 year old female who presented to the emergency room via EMS with a chief complaint of palpitations. Per patient, she developed a sudden onset of palpitations which she implemented a vagal maneuver including blowing into a straw with a brief relief of symptoms. The palpitations subsequently came back within 30 minutes prompting to call 911. Upon EMS arrival she was found in a supraventricular tachycardia rhythm for which she was successfully chemically cardioverted with adenosine 6 mg IV x1. Upon arrival to the emergency room she underwent a 12 lead electrocardiogram revealing a sinus tachycardia rhythm at 112 bpm. The patient has remained in a normal sinus rhythm since. Denies any further cardiac symptoms. The patient reports the recent diagnosis of COVID-19 by [facility] approximally on 01/19/2025. At that time she developed palpitations with [place] performing a twelve lead electrocardiogram revealing the first episode of SVT with EMS administering adenosine 6mg IV followed by 12 mg with successful transition into a NSR. She was transported to [facility] undergoing blood work and discharged home from the ED on metoprolol 50 mg QD. Denies taking the medication at home. She has an upcoming initial cardiology appointment with [place] on 02/08/2025. Significant medical history includes SVT status post chemical cardioversion x 2, hypertension, and recent COVID-19. Past Medical History Past medical history reviewed. No other significant than mentioned above. Past Surgical History Past surgical history reviewed. No other significant than mentioned above. Family History: Patient reports no known family medical history. Family History Family history reviewed. Social History Denies the use of illicit drugs, alcohol, or tobacco use. Allergies: Coded Allergies: NO KNOWN ALLERGIES (Unverified , 12/25/22) Home Meds Active Scripts Naproxen (NAPROSYN TABLET) 500 Mg Tb, 1 TAB PO BID PRN, #30 TAB 0 Refills Prov:CARLOS KAN 01/21/23 Ondansetron (Zofran) 4 Mg Tab, 4 MG PO BID for 7 Days, #14 MG Prov:LUKE CASTORENA MD 12/25/22 Oxycodone W/ Acetaminophen (Percocet 5/325MG) 1 Tab Tb, 1 TAB PO BID for 7 Days, #14 TAB Prov:LUKE CASTORENA MD 12/25/22 Ciprofloxacin Hcl (Cipro) 500 Mg Tab, 500 MG PO BID for 7 Days, #14 TAB Prov:LUKE CASTORENA MD 12/25/22 Metronidazole (Flagyl) 500 Mg Tab, 500 MG PO BID for 7 Days, #14 TAB Prov:LUKE CASTORENA MD 12/25/22 Metronidazole (Flagyl) 500 Mg Tab, 500 MG PO BID for 7 Days, #14 TAB Prov:LUKE CASTORENA MD 12/25/22 Prednisone (Prednisone) 20 Mg Tab, 60 MG PO DAILY for 5 Days, #15 MG Prov:ORLIN GARY 10/20/21 Levofloxacin (Levaquin) 500 Mg Tab, 500 MG PO DAILY for 10 Days, #10 TAB Prov:ORLIN GARY 10/20/21 Reported Medications Losartan Potassium & Hydrochlo (Hyzaar) 1 Tab Tab, 1 TAB PO DAILY, #30 TAB 5 Refills 01/30/25 Home Meds Home medications reviewed. Current Medications Current Medications Medications (Trade) Dose Ordered Sig/[place] Route PRN Reason Start Time Stop Time Status Last Admin Metoprolol Succinate (Toprol Xl) 50 mg DAILY PO 01/30/25 10:00 01/30/25 09:49 Ondansetron HCl (Zofran) 4 mg Q4HP PRN IV NAUSEA / VOMITING 01/30/25 00:00 Acetaminophen (Tylenol Tablet) 650 mg Q6HP PRN PO PAIN SCALE 1-3 OR TEMP>100.4 01/30/25 00:00 Nitroglycerin (Ntrostat Sublingual) 0.4 mg Q5MINP PRN SL FOR CHEST PAIN 01/30/25 00:00 Morphine Sulfate 2 mg Q30M PRN IV FOR CHEST PAIN 01/30/25 00:00 Review of Systems Constitutional: No symptom reported Ears, Nose, & Throat: No symptom reported Eyes: No symptom reported Neurological: No symptoms reported Pulmonary/Respiratory: No symptom reported Cardiovascular: Palpitations Gastrointestinal: No symptom reported Genitourinary: No symptom reported Musculoskeletal: No symptom reported Skin: No symptom reported Psychiatric: No symptom reported Endocrine: No symptom reported Hemotologic/Lymphatic: No symptom reported Vital Signs Vital Signs Date Time Temp Pulse Resp B/P (MAP) Pulse Ox O2 Delivery O2 Flow Rate FiO2 01/30/25 12:12 98.0 68 16 115/67 (83) 95 98.0 01/30/25 00:59 Room Air* 0 21 Physical Exam General Appearance: Cooperative. Well developed. Well nourished. In no acute distress Head Exam: Normal inspection Neck Exam: Normal inspection. Non-tender. Normal alignment Pulmonary/Respiratory: Chest non-tender. Clear bilateral breath sounds Cardiovascular/Chest: Regular rate and rhythm. S1, S2. NSR. No murmurs. No JVD. Peripheral Pulses: 2+ Radial (R). 2+ Radial (L). 2+ Pedal (R). 2+ Pedal (L) Abdominal Exam: Normal bowel sounds. Soft. Nontender. No hepatospenomegaly. No masses Ankle Exam: Negative ankle edema Lower extremities: Negative lower extremity edema Neuro/Mental Status: A&O x4. Coherent Thoughts/Psych: Normal thought pattern. Appropriate mood and affect. Good judgement and insight Appearance: In no acute distress Skin Exam: Normal inspection. Normal color. Warm. Dry Labs/Diagnostic Data Labs Test 01/29/25 21:01 01/29/25 18:14 01/29/25 18:05 Range/Units Troponin I High Sensitivity 10 </=34 ng/L Thyroid Stimulating Hormone (TSH) 0.93 0.55-4.78 uIU/mL Urine Color Colorless Yellow Urine Clarity Clear Clear Urine pH 6.5 5.0-9.0 Urine Specific [place] 1.005 1.001-1.035 Urine Protein Negative Negative Urine Ketones Negative Negative Urine Blood Negative Negative /uL Urine Nitrite Negative Negative Urine Bilirubin Negative Negative Urine Urobilinogen Normal Negative mg/dL Urine Leukocyte Esterase Negative Negative /uL Urine RBC 1 0 - 4 /hpf Urine Microscopic WBC 1 0-5 /HPF Urine Squamous Epithelial Cells Few <5 /hpf Urine Bacteria Mod H None Seen /hpf Urine Mucus Few None Seen Urine Glucose Normal Normal mg/dL White Blood Count 7.5 4.4-10.8 10^3/uL Red Blood Count 4.27 4.0-5.20 10^6/uL Hemoglobin 13.5 12.2-16.2 g/dL Hematocrit 41.4 36.0-46.0 % Mean Corpuscular Volume 97.1 80.0-100.0 fL Mean Corpuscular Hemoglobin 31.6 28.0-32.0 pg Mean Corpuscular Hemoglobin Concent 32.6 32.0-36.0 g/dL Red Cell Distribution Width 12.9 11.8-14.3 % Platelet Count 235 140-450 10^3/uL Mean Platelet Volume 7.5 6.9-10.8 fL Neutrophils (%) (Auto) 82.1 H 37.0-80.0 % Lymphocytes (%) (Auto) 11.9 10.0-50.0 % Monocytes (%) (Auto) 4.7 0.0-12.0 % Eosinophils (%) (Auto) 0.9 0.0-7.0 % Basophils (%) (Auto) 0.4 0.0-2.0 % Neutrophils # (Auto) 6.1 1.6-8.6 10 ^3/uL Lymphocytes # (Auto) 0.9 0.4-5.4 10 ^3/uL Monocytes # (Auto) 0.3 0-1.3 10 ^3/uL Eosinophils # (Auto) 0.1 0-0.8 10 ^3/uL Basophils # (Auto) 0 0-0.2 10 ^3/uL Nucleated Red Blood Cells 0.1 % D-Dimer, Quantitative 0.88 H 0.0-0.49 mg/L FEU Sodium Level 140 136-145 mmol/L Potassium Level 3.9 3.5-5.1 mmol/L Chloride Level 109 H 98-107 mmol/L Carbon Dioxide Level 20 20-31 mmol/L Anion Gap 11 5-15 Blood Urea Nitrogen 12 9-23 mg/dL Creatinine 0.74 0.550-1.02 mg/dL Glomerular Filtration Rate Calc 87 >90 mL/min BUN/Creatinine Ratio 16.2 10.0-20.0 Serum Glucose 147 H 74-106 mg/dL Calcium Level 9.6 8.7-10.4 mg/dL Magnesium Level 2.2 1.6-2.6 mg/dL Total Bilirubin 0.3 0.2-1.0 mg/dL Aspartate Amino Transferase (AST) 49 H 13-40 U/L Alanine Aminotransferase (ALT) 49 H 7-40 U/L Alkaline Phosphatase 100 46-116 U/L B-Type Natriuretic Peptide 43.83 0-100 pg/mL Total Protein 8.3 H 5.7-8.2 g/dL Albumin 4.5 3.2-4.8 g/dL Assessment Supraventricular tachycardia status post chemical cardioversion Rule out structural heart disease Recent COVID-19 Plan/Recommendation (Dr. Rubi) Scheduled for a transthoracic echocardiogram to evaluate cardiac function. In the meantime, continue metoprolol XL and uptitrate as tolerated. Replete electrolytes as ncessary, K>4 and Mg>2. TSH level within normal limits. Continue initial visit with cardiology at [facility] on 02/08/2025. In the setting of an unremarkable echocardiogram, there is no further cardiac work-up at this time. Thank you for allowing us to participate in this patient's care. Please call if you have any questions or concerns. This medical document was created using an electronic medical record system with voice recognition software and computerized dictation system. Although this document has been carefully reviewed, there might still be some phonetic and typographical errors. Occasional wrong-word or ``sound-alike substitutions may have occurred due to the inherent limitations of voice recognition software. These areas are purely typographical due to imperfections of the software programs and do not reflect any compromise in the patient's medical care. Please read the chart carefully and recognize, using context, where these substitutions have occurred. Plan discussed with: Patient, Other NYHA Physical activity limitations: NA Date of Service: Jan 30, 2025 Billing Provider: CRISTO GUZMAN Cardiology Common Codes: 42148-SSPBEAS INP/OBS CARE (High) CRISTO GUZMAN Jan 30, 2025 15:17
--- NOTE | 2025-01-30 16:19 | DVHSR ---
APPROVED REPORT EXAM: Two-dimensional and M-mode echocardiogram with Doppler and color Doppler. Blood Pressure: 124/67 mmHg INDICATION SVT RISK FACTORS Height: 5' 2", Weight: 129 DIMENSIONS LVDd4.2 (3.8-5.7cm)LA (2D)3.2 (1.9-4.0cm)Aortic Root3.0 (2.0-3.7cm) LVDs2.7 (2.5-4.0cm)LA (MM) (1.9-4.0cm)Aortic Cusp Exc (1.5-2.0cm) EF (%) 65.0 (55-70%)Rt. Atrium3.4 (1.9-4.0cm)Asc. Aorta cm IVSd0.9 (0.7-1.1cm)RV (D) (1.8-2.4cm) PWd0.8 (0.7-1.1cm) Mitral Valve MitralMitral Stenosis E wave1.00m/sMV Mean GR.mmHg A wave0.80m/sMV Peak GR.mmHg E/A ratio1.32D MVAcm2 Aortic Valve Aortic ValveAortic Stenosis V10.90m/Flaco Mean GR.9mmHg V22.10m/Flaco Peak GR.18mmHg LVOT Diameter2.2 (1.8-2.4cm)Doppler AVA1.63cm2 Pulmonic Valve V20.60m/s Tricuspid Valve TR Velocity2.70m/s [id number] Conclusion lvef 60% by visual estimate normal rv function boderline left atrium enlarged trace to mild mitral regurg mild aortic stenosis, sclerotic valve
[2025-01-31 01:00] VITALS: BP 115/58; PULSE 63; RESP 16; TEMP 97.2; O2SAT 95
[2025-01-31 05:00] VITALS: BP 110/57; PULSE 73; RESP 17; TEMP 97.3; O2SAT 98
[2025-01-31 08:00] VITALS: PULSE 78
[2025-01-31 13:00] VITALS: BP 126/64; PULSE 62; RESP 15; TEMP 97.9; O2SAT 97
[2025-01-31 17:00] VITALS: BP 112/58; PULSE 62; RESP 17; TEMP 97.7; O2SAT 97
[2025-01-31] MEDS ORDERED: METO-289 PO (17:10)
--- NOTE | 2025-01-31 17:20 | DVHDS2 ---
Discharge Summary Date of Admission Jan 29, 2025 at 23:53 Date of Discharge: Jan 31, 2025 Labs/Diagnostic Data: Laboratory Results Test 01/29/25 21:01 01/29/25 18:14 01/29/25 18:05 Troponin I High Sensitivity 10 ng/L (</=34) Thyroid Stimulating Hormone (TSH) 0.93 uIU/mL (0.55-4.78) Urine Color Colorless (Yellow) Urine Clarity Clear (Clear) Urine pH 6.5 (5.0-9.0) Urine Specific Opp 1.005 (1.001-1.035) Urine Protein Negative (Negative) Urine Ketones Negative (Negative) Urine Blood Negative /uL (Negative) Urine Nitrite Negative (Negative) Urine Bilirubin Negative (Negative) Urine Urobilinogen Normal mg/dL (Negative) Urine Leukocyte Esterase Negative /uL (Negative) Urine RBC 1 /hpf (0 - 4) Urine Microscopic WBC 1 /HPF (0-5) Urine Squamous Epithelial Cells Few /hpf (<5) Urine Bacteria Mod /hpf (None Seen) Urine Mucus Few (None Seen) Urine Glucose Normal mg/dL (Normal) White Blood Count 7.5 10^3/uL (4.4-10.8) Red Blood Count 4.27 10^6/uL (4.0-5.20) Hemoglobin 13.5 g/dL (12.2-16.2) Hematocrit 41.4 % (36.0-46.0) Mean Corpuscular Volume 97.1 fL (80.0-100.0) Mean Corpuscular Hemoglobin 31.6 pg (28.0-32.0) Mean Corpuscular Hemoglobin Concent 32.6 g/dL (32.0-36.0) Red Cell Distribution Width 12.9 % (11.8-14.3) Platelet Count 235 10^3/uL (140-450) Mean Platelet Volume 7.5 fL (6.9-10.8) Neutrophils (%) (Auto) 82.1 % (37.0-80.0) Lymphocytes (%) (Auto) 11.9 % (10.0-50.0) Monocytes (%) (Auto) 4.7 % (0.0-12.0) Eosinophils (%) (Auto) 0.9 % (0.0-7.0) Basophils (%) (Auto) 0.4 % (0.0-2.0) Neutrophils # (Auto) 6.1 10 ^3/uL (1.6-8.6) Lymphocytes # (Auto) 0.9 10 ^3/uL (0.4-5.4) Monocytes # (Auto) 0.3 10 ^3/uL (0-1.3) Eosinophils # (Auto) 0.1 10 ^3/uL (0-0.8) Basophils # (Auto) 0 10 ^3/uL (0-0.2) Nucleated Red Blood Cells 0.1 % D-Dimer, Quantitative 0.88 mg/L FEU (0.0-0.49) Sodium Level 140 mmol/L (136-145) Potassium Level 3.9 mmol/L (3.5-5.1) Chloride Level 109 mmol/L (98-107) Carbon Dioxide Level 20 mmol/L (20-31) Anion Gap 11 (5-15) Blood Urea Nitrogen 12 mg/dL (9-23) Creatinine 0.74 mg/dL (0.550-1.02) Glomerular Filtration Rate Calc 87 mL/min (>90) BUN/Creatinine Ratio 16.2 (10.0-20.0) Serum Glucose 147 mg/dL (74-106) Calcium Level 9.6 mg/dL (8.7-10.4) Magnesium Level 2.2 mg/dL (1.6-2.6) Total Bilirubin 0.3 mg/dL (0.2-1.0) Aspartate Amino Transferase (AST) 49 U/L (13-40) Alanine Aminotransferase (ALT) 49 U/L (7-40) Alkaline Phosphatase 100 U/L (46-116) B-Type Natriuretic Peptide 43.83 pg/mL (0-100) Total Protein 8.3 g/dL (5.7-8.2) Albumin 4.5 g/dL (3.2-4.8) Other Laboratory Tests 01/29/25 18:05 Brief Hx & Hospital Course: HPI: 69 year old female who presented to the emergency room via EMS with a chief complaint of palpitations. Per patient, she developed a sudden onset of palpitations which she implemented a vagal maneuver including blowing into a straw with a brief relief of symptoms. The palpitations subsequently came back within 30 minutes prompting to call 911. Upon EMS arrival she was found in a supraventricular tachycardia rhythm for which she was successfully chemically cardioverted with adenosine 6 mg IV x1. Upon arrival to the emergency room she underwent a 12 lead electrocardiogram revealing a sinus tachycardia rhythm at 112 bpm. The patient has remained in a normal sinus rhythm since. Denies any further cardiac symptoms. The patient reports the recent diagnosis of COVID-19 by [facility] approximally on 01/19/2025. At that time she developed palpitations with [place] performing a twelve lead electrocardiogram revealing the first episode of SVT with EMS administering adenosine 6mg IV followed by 12 mg with successful transition into a NSR. She was transported to [facility] undergoing blood work and discharged home from the ED on metoprolol 50 mg QD. Denies taking the medication at home. She has an upcoming initial cardiology appointment with [place] on 02/08/2025. Significant medical history includes SVT status post chemical cardioversion x 2, hypertension, and recent COVID-19. Summary: Patient had acute onset palpitations, resistant to vagal maneuvers at home. EMS called on eval found to have SVT, adenosine 6 mg IV given which terminates abnormal rhythm. Patient was recently started on beta-willie which she has not taken yet. Patient labs stable, TSH within normal limit, troponin negative, BNP negative. Patient remained on tele while admitted and no abnormal rhythms found. Cardiology consulted. Echocardiogram done which is normal. CTA PE study negative for any embolism. Cardiology signed off and recommends continuing metoprolol. Patient was stable for discharge the close follow up with primary cardiology as plan below. Diagnosis: SVT, resolved Ruled out structural heart disease PE ruled out Hypertension Discharge plan: - Continue home medications including metoprolol XL 50 mg daily - follow up with Cardiology appointment - Follow up PCP to review discharge Condition at Discharge: Fair Final Diagnosis/Problems List SVT, resolved Ruled out structural heart disease PE ruled out Hypertension Discharge Disposition: Home Discharge Instruct/Medications Diet: Cardiac 2g Na,low cholest Activity: No Restrictions, As Tolerated Follow Up/Referral: PCP, cardiology Medications: As below Discharge Statement: "Patient was advised to return to the ER or call 911 if any headaches, dizziness, shortness of breath, chest pain, abdominal pain, bleeding, fevers, or worsening of medical condition. Patient was counseled about treatment plan, medications, possible side effects, patientverbalized understanding. All questions were answered to the best of my ability. This discharge took greater then 30 minutes in planning, reviewing documentation, counseling the patient, and discussing with other team members." Date of Service: Jan 31, 2025 Billing Provider: GERALD GRAY MD Common Visit Codes: 19941-KUR/OBS DISCH DAY >30min GERALD GRAY MD Jan 31, 2025 17:20
--- NOTE | 2025-02-01 09:43 | ECG ---
[facility] Test Date: 2025-01-29 Test Time: 17:40:58 Pat Name: JAMIE OROZCO Department: ED Room: [facility]3T B Gender: F [employer] Supervisor: emanuel : 1955 Requested By: TYRONE WILSON Order Number: [id number] Reading MD: Gato Reyez Measurements Intervals [place] Rate: 112 P: 29 [place]: 143 QRS: -43 QRSD: 89 T: 8 QT: 346 QTc: 473 Interpretive Statements Sinus tachycardia Probable left atrial enlargement Left anterior fascicular block Low voltage, precordial leads RSR' in V1 or V2, right VCD or RVH Artifact in lead(s) I,III,aVR,aVL,V1,V2,V3,V4,V5,V6 Electronically Signed On 02-02-2025 20:53:04 PDT by Gato Reyez Please click the below link to view image of tracing.
== END 2025-01-31 18:09 | disposition home or self-care (01) | DRG 309 ==
LOC: EDBD 17:31 → ER 17:31 → OVERFLOW 23:53 → TELE-WESTW 01-30 22:50
PROVIDERS: ADMIT Student in an Organized Health Care Education/Training Program; ATTEND Student in an Organized Health Care Education/Training Program
PROC: 5A2204Z Restoration of Cardiac Rhythm, Single (ICD-10-PCS; principal; 2025-01-29)
DX: I47.10 Supraventricular tachycardia, unspecified (principal); J98.11 Atelectasis; I10 Essential (primary) hypertension; Z79.899 Other long term (current) drug therapy; Z86.16 Personal history of COVID-19; Z85.89 Personal history of malignant neoplasm of other organs and systems
CPT/HCPCS: 36415; 71275; 80053; 81001; 83735; 83880; 84443; 84484; 85025; 85379; 92960; 93005; 93306; G0378